=== PATIENT | female | born 1980 | race Caucasian/White ===

== ENCOUNTER 2017-01-12 10:21 | Emergency (ER) | payer MEDICAID ==
[2017-01-12 11:21] VITALS: BP 127/80
[2017-01-12 11:55] LABS: Basophils % (Auto) 0.4 % (0.0-1.8); Hematocrit 39.9 % (30.3-42.9); Hemoglobin 13.7 gm/dl (10.1-14.3); Mean Corpuscular HGB Conc 34 % (30-34); Mean Corpuscular Hemoglobin 30 pg (28-32); Mean Corpuscular Volume 87 fl (79-97); Platelet Count 290 K/mm3 (140-440); Red Blood Count 4.58 M/mm3 (3.65-5.03); Red Cell Distribution Width 12.8 % (13.2-15.2); White Blood Count 10.2 K/mm3 (4.5-11.0)
[2017-01-12 12:06] LABS: Alanine Aminotransferase 21 units/L (7-56); Albumin 4.4 g/dL (3.9-5); Albumin/Globulin Ratio 1.3 %; Alkaline Phosphatase 74 units/L (35-129); Anion Gap 17 mmol/L; Blood Urea Nitrogen 11 mg/dL (7-17); Calcium 9.7 mg/dL (8.4-10.2); Carbon Dioxide 27 mmol/L (22-30); Glucose 100 mg/dL (65-100); Lipase 17 units/L (13-60); Potassium 4.8 mmol/L (3.6-5.0); Sodium 137 mmol/L (137-145); Total Protein 7.8 g/dL (6.3-8.2)
--- NOTE | 2017-01-13 19:35 | ED Elopement Review ---
ED Pt Elopement review - Results review Lab results: Laboratory Tests 01/12/17 01/12/17 11:27 11:27 WBC 10.2 RBC 4.58 Hgb 13.7 Hct 39.9 MCV 87 MCH 30 MCHC 34 RDW 12.8 L Plt Count 290 Lymph % (Auto) 21.6 Pine % (Auto) 9.4 H Eos % (Auto) 2.0 Baso % (Auto) 0.4 Lymph # 2.2 Pine # 1.0 H Eos # 0.2 Baso # 0.0 Seg Neutrophils % 66.6 Seg Neutrophils # 6.8 Sodium 137 Potassium 4.8 Chloride 98.0 Carbon Dioxide 27 Anion Gap 17 BUN 11 Creatinine 0.5 L Estimated GFR > 60 BUN/Creatinine Ratio 22.00 Glucose 100 Calcium 9.7 Total Bilirubin 0.60 AST 12 ALT 21 Alkaline Phosphatase 74 Total Protein 7.8 Albumin 4.4 Albumin/Globulin Ratio 1.3 Lipase 17 - Call Back decision Pt Call Back Decision: No action required
== END 2017-01-12 17:00 | disposition left against medical advice (07) ==
LOC: ED 10:21
DX: R10.30 Lower abdominal pain, unspecified (principal); R11.2 Nausea with vomiting, unspecified; M54.5 Low back pain; Z53.21 Procedure and treatment not carried out due to patient leaving prior to being seen by health care provider
CPT/HCPCS: 36415; 80053; 83690; 85025

== ENCOUNTER 2017-08-21 13:44 | Emergency (ER) | payer SELFPAY ==
[2017-08-21 14:41] VITALS: BP 105/62
[2017-08-21 15:18] LABS: Basophils % (Auto) 0.5 % (0.0-1.8); Hematocrit 38.6 % (30.3-42.9); Hemoglobin 12.8 gm/dl (10.1-14.3); Mean Corpuscular HGB Conc 33 % (30-34); Mean Corpuscular Hemoglobin 29 pg (28-32); Mean Corpuscular Volume 87 fl (79-97); Platelet Count 286 K/mm3 (140-440); Red Blood Count 4.46 M/mm3 (3.65-5.03); Red Cell Distribution Width 13.3 % (13.2-15.2); White Blood Count 10.5 K/mm3 (4.5-11.0)
[2017-08-21 15:29] LABS: Anion Gap 21 mmol/L; BUN/Creatinine Ratio 13; Blood Urea Nitrogen 10 mg/dL (7-17); Calcium 9.1 mg/dL (8.4-10.2); Carbon Dioxide 24 mmol/L (22-30); Chloride 101.3 mmol/L (98-107); Glucose 101 mg/dL (65-100); Potassium 4.3 mmol/L (3.6-5.0); Sodium 142 mmol/L (137-145)
[2017-08-21 15:57] LABS: Urine Drugs of Abuse Note Disclamer
[2017-08-21 16:06] LABS: Bacteria,Urine 1+ /HPF (Negative); Bilirubin,Urine NEG (Negative); Blood,Urine NEG (Negative); Ketones,Urine TR mg/dL (Negative); Leukocyte Esterase,Urine TR (Negative); Mucus,Urine FEW /HPF; Nitrite,Urine NEG (Negative); Urobilinogen,Urine < 2.0 mg/dL (<2.0)
--- NOTE | 2017-08-21 17:52 | Emergency Department Report ---
ED Psych HPI - General Chief Complaint: Psych Stated Complaint: OVERDOSE Time Seen by Provider: 08/21/17 15:43 Source: patient, EMS Mode of arrival: Stretcher - History of Present Illness Initial Comments: Patient is 36 years old female with no significant past medical history, brought by EMS for evaluation after she took her muscle relaxant and alcohol and start making some noise, neighbor's called EMS and EMS brought the patient here for evaluation. Patient is alert oriented 3 in no acute distress.. She stated that she did not say anything about suicidal ideation. She said she only took one pill and one shot of liquor. Denies any visual or auditory hallucination and no previous history of psychiatric disorder. When asked about why did the EMS brought her here, she stated that because she gave him the wrong name of the president and he thought that I am confused. Context: recent alcohol abuse - Related Data Allergies Allergy/AdvReac Type Severity Reaction Status Date / Time No Known Allergies Allergy Unverified 01/12/17 11:17 ED Review of Systems ROS: Stated complaint: OVERDOSE Other details as noted in HPI Comment: All other systems reviewed and negative Constitutional: denies: chills, fever ENT: denies: throat pain, hearing loss Respiratory: denies: cough Cardiovascular: denies: chest pain, palpitations, dyspnea on exertion Gastrointestinal: denies: abdominal pain, nausea, vomiting Musculoskeletal: denies: back pain, joint swelling, arthralgia Neurological: denies: headache, weakness, numbness, paresthesias Psychiatric: denies: anxiety, depression, auditory hallucinations, visual hallucinations, homicidal thoughts, suicidal thoughts ED Past Medical Hx - Past Medical History Hx of Cancer: Yes (kidney) - Surgical History Hx Cholecystectomy: Yes - Social History Smoking Status: Never Smoker Substance Use Type: Alcohol ED Physical Exam - General Limitations: No Limitations General appearance: alert, in no apparent distress - Head Head exam: Present: atraumatic, normocephalic - Eye Eye exam: Present: normal appearance, PERRL - ENT ENT exam: Present: normal exam, normal orophraynx, mucous membranes moist - Neck Neck exam: Present: normal inspection, full ROM. Absent: tenderness, meningismus - Respiratory Respiratory exam: Present: normal lung sounds bilaterally - Cardiovascular Cardiovascular Exam: Present: regular rate, normal rhythm, normal heart sounds - GI/Abdominal GI/Abdominal exam: Present: soft, normal bowel sounds. Absent: distended, tenderness, guarding, rebound, rigid - Extremities Exam Extremities exam: Present: normal inspection, full ROM, normal capillary refill - Neurological Exam Neurological exam: Present: alert, oriented X3, CN II-XII intact, normal gait - Psychiatric Psychiatric exam: Present: normal affect, normal mood. Absent: depressed, agitated, anxious, flat affect, manic, homicidal ideation, suicidal ideation - Skin Skin exam: Present: warm, intact, normal color. Absent: cyanosis ED Course Vital Signs 08/21/17 08/21/17 08/21/17 14:27 14:40 14:42 Temperature 98.1 F 98.1 F Pulse Rate 89 89 Respiratory 20 20 Rate Blood Pressure 105/62 Blood Pressure 105/62 [Left] O2 Sat by Pulse 99 99 99 Oximetry - Reevaluation(s) Reevaluation #1: 08/21/17 17:55 Patient remained alert, oriented 3, in no acute distress. No evidence of acute psychosis or drug overdose. No suicidal or homicidal ideation. Reevaluation #2: 08/21/17 18:00 Patient assessed by mental health counselor, she stated that patient can be discharged home. ED Medical Decision Making - Lab Data Result diagrams: 08/21/17 14:49 08/21/17 14:49 Critical care attestation.: If time is entered above; I have spent that time in minutes in the direct care of this critically ill patient, excluding procedure time. ED Disposition Clinical Impression: Altered mental status Disposition: DC-01 TO HOME OR SELFCARE Is pt being admited?: No Condition: Stable Instructions: Altered Mental Status (ED) Referrals: KEATON KEARNS DO [Primary Care Provider] - 3-5 Days
== END 2017-08-21 19:56 | disposition home or self-care (01) ==
LOC: ED 13:44
DX: R41.82 Altered mental status, unspecified (principal); C64.9 Malignant neoplasm of unspecified kidney, except renal pelvis
CPT/HCPCS: 36415; 80048; 80307; 81001; 85025; 99284; G0480; 80320

== ENCOUNTER 2020-06-04 14:42 | Emergency (ER) | payer MEDICAID ==
[2020-06-04 15:01] VITALS: BP 116/77
[2020-06-04 17:43] LABS: Bacteria,Urine 1+ /HPF (Negative); Bilirubin,Urine NEG (Negative); Blood,Urine NEG (Negative); Color,Urine Yellow (Yellow); Protein,Urine <15 mg/dL mg/dL (Negative); Urobilinogen,Urine < 2.0 mg/dL (<2.0); WBC,Urine < 1.0 /HPF (0.0-6.0)
[2020-06-04 17:47] LABS: HCG Qualitative,Urine Positive (Negative)
[2020-06-04 18:34] LABS: Hematocrit 36.8 % (30.3-42.9); Hemoglobin 12.4 gm/dl (10.1-14.3); Mean Corpuscular HGB Conc 34 % (30-34); Mean Corpuscular Volume 87 fl (79-97); Platelet Count 322 K/mm3 (140-440); Red Blood Count 4.23 M/mm3 (3.65-5.03); Red Cell Distribution Width 13.6 % (13.2-15.2)
--- NOTE | 2020-06-04 18:43 | Emergency Department Report ---
ED HPI - General Chief complaint: Abdominal Pain Stated complaint: ABD PAIN/6WEEKS PREG Time Seen by Provider: 06/04/20 17:54 Source: patient Mode of arrival: Ambulatory Limitations: No Limitations - History of Present Illness Initial comments: This is a 39-year-old female nontoxic, well nourished in appearance, no acute signs of distress presents to the ED with c/o of vaginal bleeding and pelvic pain x1 day. Patient stated yesterday she noticed some spotting this morning. Patient denies any abdominal pain. Patient denies any vaginal discharge or foul odor. Patient denies any nausea, vomiting, chest pain, shortness of breathe, fever, chills, headache, stiff neck, numbness, tingling. Patient denies any urinary symptoms. Patient denies any allergies or PMH. MD Complaint: vaginal bleeding, other (pelvic pain) -: days(s) Location: pelvis Radiation: none Severity: mild Severity scale (0 -10): 3 Quality: cramping, aching Consistency: constant Improves with: none Worsens with: none Associated symptoms: vaginal bleeding. denies: nausea/vomiting, vaginal d ischarge, abdominal pain, dysuria, headache, vision changes, malaise, dysparuenia, rash, seizure, shortness of breath, syncope, weakness Vaginal bleeding: light :: Yes Number of weeks : 6 Pre-eleazar care: followed by OB - Related Data Allergies Allergy/AdvReac Type Severity Reaction Status Date / Time No Known Allergies Allergy Verified 06/04/20 14:59 ED Review of Systems ROS: Stated complaint: ABD PAIN/6WEEKS PREG Other details as noted in HPI Constitutional: denies: chills, fever Eyes: denies: eye pain, eye discharge, vision change ENT: denies: ear pain, throat pain Respiratory: denies: cough, shortness of breath, wheezing Cardiovascular: denies: chest pain, palpitations Endocrine: no symptoms reported Gastrointestinal: denies: abdominal pain, nausea, diarrhea Genitourinary: abnormal menses. denies: urgency, dysuria, discharge Musculoskeletal: denies: back pain, joint swelling, arthralgia Skin: denies: rash, lesions Neurological: denies: headache, weakness, paresthesias Psychiatric: denies: anxiety, depression Hematological/Lymphatic: denies: easy bleeding, easy bruising ED Past Medical Hx - Past Medical History Previous Medical History?: Yes - Surgical History Past Surgical History?: Yes Hx Cholecystectomy: Yes - Social History Smoking Status: Never Smoker Substance Use Type: None ED Physical Exam - General Limitations: No Limitations General appearance: alert, in no apparent distress - Head Head exam: Present: atraumatic, normocephalic - Eye Eye exam: Present: normal appearance - Neck Neck exam: Present: normal inspection, full ROM. Absent: tenderness, meningismus, lymphadenopathy - Respiratory Respiratory exam: Absent: respiratory distress - Cardiovascular Cardiovascular Exam: Present: regular rate - GI/Abdominal GI/Abdominal exam: Present: soft, normal bowel sounds. Absent: distended, tenderness, guarding, rebound, rigid, diminished bowel sounds - Extremities Exam Extremities exam: Present: full ROM - Back Exam Back exam: Present: normal inspection, full ROM. Absent: tenderness, CVA tenderness (R), CVA tenderness (L), muscle spasm, paraspinal tenderness, vertebral tenderness, rash noted - Neurological Exam Neurological exam: Present: alert, oriented X3, normal gait - Psychiatric Psychiatric exam: Present: normal affect, normal mood - Skin Skin exam: Present: warm, dry, intact, normal color. Absent: rash ED Course Vital Signs 06/04/20 14:59 Temperature 98.3 F Pulse Rate 86 Respiratory 20 Rate Blood Pressure 116/77 O2 Sat by Pulse 98 Oximetry - Reevaluation(s) Reevaluation #1: 06/04/20 18:42 Patient is speaking in full sentences with no signs of distress noted. ED Medical Decision Making - Lab Data Result diagrams: 06/04/20 18:09 Lab Results 06/04/20 06/04/20 06/04/20 Range/Units 18:09 18:09 18:09 WBC 13.0 H (4.5-11.0) K/mm3 RBC 4.23 (3.65-5.03) M/mm3 Hgb 12.4 (10.1-14.3) gm/dl Hct 36.8 (30.3-42.9) % MCV 87 (79-97) fl MCH 29 (28-32) pg MCHC 34 (30-34) % RDW 13.6 (13.2-15.2) % Plt Count 322 (140-440) K/mm3 HCG, Quant 772.5 H (0-4) mIU/mL Urine Color (Yellow) Urine Turbidity (Clear) Urine pH (5.0-7.0) Ur Specific [place] (1.003-1.030) Urine Protein (Negative) mg/dL Urine Glucose (UA) (Negative) mg/dL Urine Ketones (Negative) mg/dL Urine Blood (Negative) Urine Nitrite (Negative) Urine Bilirubin (Negative) Urine Urobilinogen (<2.0) mg/dL Ur Leukocyte Esterase (Negative) Urine WBC (Auto) (0.0-6.0) /HPF Urine RBC (Auto) (0.0-6.0) /HPF U Epithel Cells (Auto) (0-13.0) /HPF Urine Bacteria (Auto) (Negative) /HPF Urine HCG, Qual (Negative) Blood Type O POSITIVE 06/04/20 Range/Units Unknown WBC (4.5-11.0) K/mm3 RBC (3.65-5.03) M/mm3 Hgb (10.1-14.3) gm/dl Hct (30.3-42.9) % MCV (79-97) fl MCH (28-32) pg MCHC (30-34) % RDW (13.2-15.2) % Plt Count (140-440) K/mm3 HCG, Quant (0-4) mIU/mL Urine Color Yellow (Yellow) Urine Turbidity Clear (Clear) Urine pH 6.0 (5.0-7.0) Ur Specific [place] 1.013 (1.003-1.030) Urine Protein <15 mg/dl (Negative) mg/dL Urine Glucose (UA) Neg (Negative) mg/dL Urine Ketones Neg (Negative) mg/dL Urine Blood Neg (Negative) Urine Nitrite Neg (Negative) Urine Bilirubin Neg (Negative) Urine Urobilinogen < 2.0 (<2.0) mg/dL Ur Leukocyte Esterase Neg (Negative) Urine WBC (Auto) < 1.0 (0.0-6.0) /HPF Urine RBC (Auto) 1.0 (0.0-6.0) /HPF U Epithel Cells (Auto) 4.0 (0-13.0) /HPF Urine Bacteria (Auto) 1+ (Negative) /HPF Urine HCG, Qual Positive A (Negative) Blood Type - Radiology Data Referring Physician: TEDDY FRANCOIS Patient Name: CLOVIS GARCÍA Date of : 1980 Sex: Female Report Date: 2020-06-04 Report Status: Finalized [address] [address] Ultrasound Report Signed Patient: CLOVIS GARCÍA MR#: [id number] 10 : 1980 Acct:[id number] Age/Sex: 39 / F ADM Date: 06/04/20 Loc: ED Attendi Dr: Ordering Physician: TEDDY FRANCOIS NP Date of Service: 06/04/20 Procedure(s): US OB transvaginal Accession Number(s): [id number] cc: TEDDY FRANCOIS NP ULTRASOUND OBSTETRIC INDICATION / CLINICAL INFORMATION: pelvic pain and vaginal bleeding. Clinical Gestational Age (GA): 6 weeks 3 days TECHNIQUE: Transabdominal. Transvaginal COMPARISON: None available. FINDINGS: The uterus is mildly enlarged measuring 11.1 x 6.1 x 7.2 cm. Endometrium is mildly thickened measuring 13 mm in caliber. No uterine mass identified. No visible gestational sac at this time. ADNEXA: Both ovaries appear grossly unremarkable. Color Doppler ultrasound demonstrates bilateral blood flow to both ovaries. No adnexal mass. FREE FLUID: Trace free fluid noted in the posterior cul-de-sac. ADDITIONAL FINDINGS: None. IMPRESSION: 1. No evidence of gestational sac at this time. Mild endometrial thickening. Please correlate with hCG levels. Signer Name: Dolores Ang MD Signed: 06/04/2020 7:21 PM Workstation Name: [id number] Transcribed By: JR Dictated By: Dolores Ang MD Electronically Authenticated By: Dolores Ang MD Signed Date/Time: 06/04/201920 DD/ 18 TD/TT: Referring Physician: TEDDY FRANCOIS Patient Name: CLOVIS GARCÍA Date of : 1980 Sex: Female Report Date: 2020-06-04 Report Status: Finalized [address] [address] Ultrasound Report Signed Patient: CLOVIS GARCÍA MR#: [id number] 10 : 1980 Acct:[id number] Age/Sex: 39 / F ADM Date: 06/04/20 Loc: ED Attending Dr: Ordering Physician: TEDDY FRANCOIS NP Date of Service: 06/04/20 Procedure(s): US OB <= 14 weeks fetus Accession Number(s): [id number] cc: TEDDY FRANCOIS NP ULTRASOUND OBSTETRIC INDICATION / CLINICAL INFORMATION: pelvic pain and vaginal bleeding. Clinical Gestational Age (GA): 6 weeks 3 days TECHNIQUE: Transabdominal. Transvaginal COMPARISON: None available. FINDINGS: The uterus is mildly enlarged measuring 11.1 x 6.1 x 7.2 cm. Endometrium is mildly thickened measuring 13 mm in caliber. No uterine mass identified. No visible gestational sac at this time. ADNEXA: Both ovaries appear grossly unremarkable. Color Doppler ultrasound demonstrates bilateral blood flow to both ovaries. No adnexal mass. FREE FLUID: Trace free fluid noted in the posterior cul-de-sac. ADDITIONAL FINDINGS: None. IMPRESSION: 1. No evidence of gestational sac at this time. Mild endometrial thickening. Please correlate with hCG levels. Signer Name: Dolores Ang MD Signed: 06/04/2020 7:21 PM Workstation Name: [id number] Transcribed By: Dictated By: Dolores Ang MD Electronically Authenticated By: Dolores Ang MD Signed Date/Time: 06/04/201920 DD/ 18 TD/TT: - Medical Decision Making This is a 39-year-old female presents with threatened miscarriage. Patient is stable and was examined by me. Normal abdominal exam. US OB obtained and dictated by the radiologist. Ua obtained. Quantative serum test obtained. Patient notified of the US report with no questions noted by the patient. Patient was instructed f/u with [facility] in 2 days for repeat HCG and possible US. RH factor positive. Labs within normal limits. Patient was given strict precautions and education on ectopic . At time of discharge, the patient does not seem toxic or ill in appearance. No acute signs of distress noted. Patient agrees to discharge treatment plan of care. No further questions noted by the patient. Critical care attestation.: If time is entered above; I have spent that time in minutes in the direct care of this critically ill patient, excluding procedure time. ED Disposition Clinical Impression: Vaginal bleeding during Disposition: DC-01 TO HOME OR SELFCARE Is pt being admited?: No Does the pt Need Aspirin: No Condition: Stable Instructions: (ED) Additional Instructions: Follow-up with a OBGYN doctor in 2 days for repeat HCG test and possible ultrasound or if symptoms worsen and continue return to emergency room as soon as possible. Referrals: PRIMARY CAREMD [Primary Care Provider] - 3-5 Days [facility] [Provider Group] - 3-5 Days [facility] [Provider Group] - 3-5 Days Forms: Work/School Release Form(ED)
--- NOTE | 2020-06-04 19:26 | Ultrasound Report ---
ULTRASOUND OBSTETRIC INDICATION / CLINICAL INFORMATION: pelvic pain and vaginal bleeding. Clinical Gestational Age (GA): 6 weeks 3 days TECHNIQUE: Transabdominal. Transvaginal COMPARISON: None available. FINDINGS: The uterus is mildly enlarged measuring 11.1 x 6.1 x 7.2 cm. Endometrium is mildly thickened measurin g 13 mm in caliber. No uterine mass identified. No visible gestational sac at this time. ADNEXA: Both ovaries appear grossly unremarkable. Color Doppler ultrasound demonstrates bilateral blo od flow to both ovaries. No adnexal mass. FREE FLUID: Trace free fluid noted in the posterior cul-de-sac. ADDITIONAL FINDINGS: None. IMPRESSION: 1. No evidence of gestational sac at this time. Mild endometrial thickening. Please correlate with hC G levels. Signer Name: Dolores Ang MD Signed: 06/04/2020 7:21 PM Workstation Name: [id number]
[2020-06-04 21:03] LABS: Band Neutrophils # (Manual) 0.1 K/mm3; Platelet Estimate Consistent w Auto; RBC Morphology Normal; Total Cells Counted 100
== END 2020-06-04 20:22 | disposition home or self-care (01) ==
LOC: ED 14:42
DX: O20.8 Other hemorrhage in early pregnancy (principal); O26.891 Other specified pregnancy related conditions, first trimester; R10.2 Pelvic and perineal pain; Z3A.01 Less than 8 weeks gestation of pregnancy; Z90.49 Acquired absence of other specified parts of digestive tract
CPT/HCPCS: 36415; 76801; 76817; 81001; 81025; 84702; 85007; 85025; 86900; 86901